=== PATIENT | male | born 1965 | race Two or more races ===

== ENCOUNTER 2020-04-02 13:53 | Inpatient (IN) | payer MEDICARE, MEDICAID ==
[~2020-04-02] VITALS: Ht 170.2 cm; Wt 114.2 kg
[2020-04-02 14:40] LABS: White Blood Cell 3.5 10^3/uL (4.4-10.8)
[2020-04-02 14:41] LABS: Hematocrit 35.7 % (41.0-53.0); Hemoglobin 11.8 g/dL (13.5-17.5); Mean Corpuscular Hgb Conc. 32.9 g/dL (32.0-36.0); Mean Corpuscular Volume 97.2 fL (80.0-100.0); Platelet Count (auto) 53 10^3/uL (140-450); Red Blood Cells 3.67 10^6/uL (4.5-5.90); Red Cell Distribution Width 17.6 % (11.8-14.3)
[2020-04-02 14:48] LABS: Band Neutrophils % (manual) 0; Basophils % (manual) 0 (0.0-2.0); Blast Cells 0; Metamyelocytes % 0; Myelocytes % 0; Promyelocytes % 0; Reactive Lymphocytes 0
[2020-04-02 15:01] LABS: Albumin 1.4 g/dL (3.4-5.0); Potassium 4.2 mmol/L (3.5-5.1)
[2020-04-02 15:04] LABS: BUN/Creatinine Ratio 8.5; Bilirubin, Total 3.7 mg/dL (0.2-1.0); Total Protein 6.2 g/dL (6.4-8.2)
[2020-04-02 16:35] LABS: Eosinophils % (manual) 12 (0-7); Lymphocytes % (manual) 17 (10.0-50.0); Monocytes % (manual) 18 (0-12)
[2020-04-02] MEDS ORDERED: FUROSEMIDE 20 MG/2 ML VIAL IV ONE (23:45)
[2020-04-03] MEDS ORDERED: SPIRONOLACTONE 25 MG TAB PO ONE (02:00)
[2020-04-03] MEDS ORDERED: chlordiazePOXIDE HCL 25 MG CAP PO PRN (02:15)
[2020-04-03 02:36] LABS: Basophils # (auto) 0 10 ^3/uL (0-0.2); Basophils % (auto) 0.7 % (0.0-2.0); Eosinophils # (auto) 0.3 10 ^3/uL (0-0.8); Eosinophils % (auto) 7.9 % (0.0-7.0); Hematocrit 38.1 % (41.0-53.0); Hemoglobin 12.2 g/dL (13.5-17.5); Lymphocytes # (auto) 0.9 10 ^3/uL (0.4-5.4); Lymphocytes % (auto) 19.4 % (10.0-50.0); Mean Corpuscular Hemoglobin 31.4 pg (28.0-32.0); Mean Corpuscular Hgb Conc. 32.1 g/dL (32.0-36.0); Mean Corpuscular Volume 97.7 fL (80.0-100.0); Monocytes # (auto) 0.6 10 ^3/uL (0-1.3); Monocytes % (auto) 13.6 % (0.0-12.0); Neutrophils # (auto) 2.6 10 ^3/uL (1.6-8.6); Neutrophils % (auto) 58.4 % (37.0-80.0); Nucleated Red Blood Cells % 0.2 %; Platelet Count (auto) 65 10^3/uL (140-450); Red Cell Distribution Width 17.9 % (11.8-14.3); White Blood Cell 4.4 10^3/uL (4.4-10.8)
[2020-04-03 02:54] LABS: INR 1.76 (0.9-1.15); Partial Thromboplastin Time 34.7 sec (23.64-32.05)
[2020-04-03 02:56] LABS: Albumin 1.5 g/dL (3.4-5.0); BUN/Creatinine Ratio 9.3; Calcium 7.3 mg/dL (8.5-10.1); Potassium 4.5 mmol/L (3.5-5.1)
[2020-04-03 02:59] LABS: Bilirubin, Total 6.1 mg/dL (0.2-1.0); Total Protein 6.6 g/dL (6.4-8.2)
[2020-04-03] MEDS: CLINDAMYCIN 600MG IV 50 ML IV SCH ×2 (06:14→12:27)
[2020-04-03] MEDS ORDERED: FUROSEMIDE 40 MG/4 ML VIAL IV SCH (10:00)
[2020-04-03] MEDS ORDERED: FOLIC ACID 1 MG TAB PO ONE (13:45)
[2020-04-03] MEDS ORDERED: THIAMINE HCL 100 MG TAB PO ONE (13:45)
[2020-04-03] MEDS ORDERED: LABETALOL HCL 200 MG TAB PO ONE (13:45)
[2020-04-03] MEDS ORDERED: cloNIDine HCL 0.1 MG TAB PO PRN (13:45)
[2020-04-03 14:41] LABS: Alcohol, Urine < 3.0 mg/dL (0-10); Amphetamine Screen, Urine NEGATIVE (NEGATIVE); Barbiturate Scree,Urine NEGATIVE (NEGATIVE); Benzodiazephine Screen, Urine NEGATIVE (NEGATIVE); Cannabinoid Screen, Urine NEGATIVE (NEGATIVE); Cocaine Screen, Urine NEGATIVE (NEGATIVE); Opiate Scree,Urine NEGATIVE (NEGATIVE); Phencyclidine Screen, Urine NEGATIVE (NEGATIVE)
[2020-04-03 15:04] LABS: Urine WBC None Seen /hpf (0 - 3)
[2020-04-03 15:19] LABS: Urine Bacteria NONE SEEN /hpf (None Seen); Urine Blood TRACE /uL (Negative); Urine Mucus FEW (None Seen); Urine Specific Gravity 1.006 (1.001-1.035)
[2020-04-03] MEDS: ALBUMIN 25% 100 ML IV SCH ×2 (15:38→23:50)
[2020-04-03 17:17] LABS: Free T3 2.82 pg/mL (2.3-4.2); Free T4 (Free Thyroxine) 0.96 ng/dL (0.89-1.76)
[2020-04-03] MEDS: SPIRONOLACTONE 25 MG TAB PO SCH (18:48)
[2020-04-03 22:00] VITALS: BP 107/67
[2020-04-03] MEDS ORDERED: CIPROFLOXACIN HCL 500 MG TAB PO SCH (22:00)
[2020-04-03] MEDS: FUROSEMIDE 40 MG/4 ML VIAL IV SCH (22:15)
[2020-04-03] MEDS: LABETALOL HCL 200 MG TAB PO SCH (22:16)
[2020-04-03] MEDS: HYDROcodone-ACET 5/325MG TAB PO PRN (22:17)
[2020-04-04] VITALS (7 sets, daily range): BP systolic 105–129; BP diastolic 58–77
[2020-04-04] MEDS: SPIRONOLACTONE 25 MG TAB PO SCH ×2 (06:38→17:07)
[2020-04-04] MEDS: FUROSEMIDE 40 MG/4 ML VIAL IV SCH ×2 (06:38→17:07)
[2020-04-04] MEDS: ALBUMIN 25% 100 ML IV SCH ×3 (06:39→19:47)
[2020-04-04 07:02] LABS: Basophils # (auto) 0 10 ^3/uL (0-0.2); Eosinophils # (auto) 0.1 10 ^3/uL (0-0.8); Hemoglobin 9.3 g/dL (13.5-17.5); Lymphocytes # (auto) 0.7 10 ^3/uL (0.4-5.4); Monocytes # (auto) 0.3 10 ^3/uL (0-1.3); Neutrophils # (auto) 1.1 10 ^3/uL (1.6-8.6); Platelet Count (auto) 32 10^3/uL (140-450); White Blood Cell 2.3 10^3/uL (4.4-10.8)
[2020-04-04 07:03] LABS: Potassium 3.4 mmol/L (3.5-5.1)
[2020-04-04 07:04] LABS: Basophils % (auto) 0.7 % (0.0-2.0); Hematocrit 28.1 % (41.0-53.0); Lymphocytes % (auto) 29.7 % (10.0-50.0); Mean Corpuscular Hemoglobin 32.2 pg (28.0-32.0); Mean Corpuscular Hgb Conc. 33.2 g/dL (32.0-36.0); Monocytes % (auto) 14.2 % (0.0-12.0); Neutrophils % (auto) 49.4 % (37.0-80.0); Nucleated Red Blood Cells % 0.1 %; Red Blood Cells 2.89 10^6/uL (4.5-5.90); Red Cell Distribution Width 17.8 % (11.8-14.3)
[2020-04-04 07:24] LABS: Albumin 1.7 g/dL (3.4-5.0); BUN/Creatinine Ratio 13.1; Bilirubin, Total 5.2 mg/dL (0.2-1.0); Calcium 7.3 mg/dL (8.5-10.1); Total Protein 5.1 g/dL (6.4-8.2)
[2020-04-04] MEDS: LABETALOL HCL 200 MG TAB PO SCH (09:46)
[2020-04-04] MEDS: FOLIC ACID 1 MG TAB PO SCH (09:58)
[2020-04-04] MEDS: THIAMINE HCL 100 MG TAB PO SCH (09:58)
[2020-04-04] MEDS: PANTOPRAZOLE 40 MG TAB PO SCH (09:58)
[2020-04-04] MEDS ORDERED: POTASSIUM CHL 10 Meq TABLET PO ONE ×2 (11:30→13:00)
[2020-04-04] MEDS: HYDROcodone-ACET 5/325MG TAB PO PRN (17:16)
[2020-04-04] MEDS: POTASSIUM CHL 10 Meq TABLET PO SCH (21:40)
[2020-04-05] MEDS: ALBUMIN 25% 100 ML IV SCH (03:03)
[2020-04-05 05:00] VITALS: BP 121/67
[2020-04-05] MEDS: SPIRONOLACTONE 25 MG TAB PO SCH ×2 (06:15→17:46)
[2020-04-05] MEDS: FUROSEMIDE 40 MG/4 ML VIAL IV SCH ×2 (06:15→18:29)
[2020-04-05 09:00] VITALS: BP 126/70
[2020-04-05] MEDS: FOLIC ACID 1 MG TAB PO SCH (10:06)
[2020-04-05] MEDS: THIAMINE HCL 100 MG TAB PO SCH (10:06)
[2020-04-05] MEDS: POTASSIUM CHL 10 Meq TABLET PO SCH ×2 (10:07→21:22)
[2020-04-05] MEDS: PANTOPRAZOLE 40 MG TAB PO SCH (10:07)
[2020-04-05] MEDS ORDERED: metOLazone 5 MG TAB PO ONE (12:15)
[2020-04-05] MEDS ORDERED: POTASSIUM CHL 20 Meq TABLET PO ONE (12:15)
[2020-04-05 13:00] VITALS: BP 119/68
[2020-04-05 17:00] VITALS: BP 148/72
[2020-04-05] MEDS: HYDROcodone-ACET 5/325MG TAB PO PRN (17:47)
[2020-04-05 22:00] VITALS: BP 118/63
[2020-04-05 22:11] VITALS: BP 118/63
[2020-04-06] MEDS: HYDROcodone-ACET 5/325MG TAB PO PRN ×2 (05:21→13:25)
[2020-04-06 05:52] VITALS: BP 131/69
[2020-04-06 05:54] VITALS: BP 131/69
[2020-04-06] MEDS: SPIRONOLACTONE 25 MG TAB PO SCH (06:18)
[2020-04-06] MEDS: FUROSEMIDE 40 MG/4 ML VIAL IV SCH (06:18)
[2020-04-06 06:51] LABS: Potassium 3.7 mmol/L (3.5-5.1)
[2020-04-06 07:05] LABS: BUN/Creatinine Ratio 11.5; Calcium 7.6 mg/dL (8.5-10.1)
[2020-04-06 09:24] VITALS: BP 135/74
[2020-04-06] MEDS ORDERED: LACTULOSE 20Gm/30ML SOLN PO SCH (10:00)
[2020-04-06] MEDS: FOLIC ACID 1 MG TAB PO SCH (10:15)
[2020-04-06] MEDS: PANTOPRAZOLE 40 MG TAB PO SCH (10:16)
[2020-04-06] MEDS: POTASSIUM CHL 10 Meq TABLET PO SCH (10:17)
[2020-04-06] MEDS: THIAMINE HCL 100 MG TAB PO SCH (10:17)
[2020-04-06] MEDS ORDERED: FURO40TA4 PO (12:58)
[2020-04-06] MEDS ORDERED: THIA100T10 PO (12:58)
[2020-04-06] MEDS ORDERED: PANT40T PO (12:58)
[2020-04-06] MEDS ORDERED: LACT10SO3 PO (12:58)
[2020-04-06] MEDS ORDERED: SPIR100T4 PO (12:58)
[2020-04-06] MEDS ORDERED: FOLI1TAB6 PO (12:58)
[2020-04-06] MEDS ORDERED: metOLazone 5 MG TAB PO ONE (13:00)
[2020-04-06] MEDS ORDERED: POTASSIUM CHL 20 Meq TABLET PO ONE (13:00)
[2020-04-06] MEDS ORDERED: PROPRANOLOL HCL 20 MG TAB PO ONE (13:00)
[2020-04-06] MEDS ORDERED: PROP20TA73 PO (13:06)
[2020-04-06 14:00] VITALS: BP 130/75
[2020-04-06] MEDS ORDERED: LEVO25TA6 PO (14:10)
[2020-04-06 15:14] VITALS: BP 130/75
[2020-04-06 17:00] VITALS: BP 121/66
[2020-04-06] MEDS ORDERED: PROPRANOLOL HCL 20 MG TAB PO SCH (22:00)
== END 2020-04-06 16:50 | disposition home health service (06) | DRG 432 ==
LOC: ER 13:53 → OVERFLOW 13:54 → WEST WING 04-03 18:15
PROVIDERS: ADMIT Hospitalist; ATTEND Internal Medicine
DX: K70.31 Alcoholic cirrhosis of liver with ascites (principal); E43 Unspecified severe protein-calorie malnutrition; K76.6 Portal hypertension; D61.818 Other pancytopenia; D68.9 Coagulation defect, unspecified; I50.810 Right heart failure, unspecified; N50.819 Testicular pain, unspecified; E88.09 Other disorders of plasma-protein metabolism, not elsewhere classified; E03.9 Hypothyroidism, unspecified; K42.9 Umbilical hernia without obstruction or gangrene; Z83.3 Family history of diabetes mellitus
CPT/HCPCS: 36415; 71045; 76705; 76870; 80048; 80053; 80307; 81001; 82140; 83880; 84439; 84443; 84481; 84484; 85007; 85025; 85027; 85610; 85730; 93005; 96365; 96375; G0378; J3490; P9047